=== PATIENT | female | born 1990 | race African-American/Black ===

== ENCOUNTER 2020-09-27 17:05 | Emergency (ER) | payer MEDICAID, SELFPAY ==
[2020-09-27] MEDS ORDERED: hydrOXYzine 25 MG TAB ONE (18:57)
[2020-09-27] MEDS ORDERED: Ketorolac Tromethamine 30 MG/ML VIAL ONE (18:57)
[2020-09-27 19:40] LABS: #Lymphocytes 1.8 thou/uL (1.20-3.40); #Monocytes 0.3 thou/uL (0.11-0.59); #Neutrophils 1.8 thou/uL (1.40-6.50); %Basophils 0.7 % (0.0-1.0); %Lymphocytes 45.3 % (21.0-51.0); %Monocytes 7.9 % (0.0-10.0); %Neutrophils 45.1 % (42.0-75.0); Mean Corpuscular Hemoglobin 26.9 pg (27.0-31.0); Mean Corpuscular Volume 86.9 fL (78.0-98.0); Mean Platelet Volume 9.5 fL (7.4-10.4); Platelet Count 177 thou/uL (130-400); RBC Distribution Width 14.1 % (11.5-14.5); Red Blood Cell (RBC) Count 4.44 mill/uL (4.20-5.40)
[2020-09-27 19:56] LABS: ALT (SGPT) 15 U/L (8-55); AST (SGOT) 31 U/L (5-34); Albumin 3.6 g/dL (3.5-5.0); Alkaline Phosphatase 39 U/L (40-110); Anion Gap 12 mmol/L (10-20); BUN (Urea Nitrogen) 8 mg/dL (7.0-18.7); Bilirubin, Total 0.4 mg/dL (0.2-1.2); Calc. Creatinine Clearance 0 mL/min (70-130); Calcium 8.8 mg/dL (7.8-10.44); Carbon Dioxide 22 mmol/L (22-29); Chloride 109 mmol/L (98-107); Globulin 3.7 g/dL (2.4-3.5); Glucose 82 mg/dL (70-105); Magnesium 1.7 mg/dL (1.6-2.6); Potassium 3.4 mmol/L (3.5-5.1); Protein, Total 7.3 g/dL (6.0-8.3); Sodium 140 mmol/L (136-145)
== END 2020-09-27 20:32 | disposition home or self-care (01) ==
LOC: MADERS 17:05
DX: F41.9 Anxiety disorder, unspecified (principal); R55 Syncope and collapse; R94.31 Abnormal electrocardiogram [ECG] [EKG]; F17.210 Nicotine dependence, cigarettes, uncomplicated
CPT/HCPCS: 36415; 71045; 72072; 80053; 83735; 83880; 84484; 85025; 93005; 96372; J1885